=== PATIENT | male | born 1990 ===

== ENCOUNTER 2017-07-15 01:40 | Emergency (ER) | payer SELFPAY ==
[2017-07-15 02:00] VITALS: BP 141/88
[2017-07-15 07:39] LABS: Bilirubin,Urine NEG (Negative); Blood,Urine NEG (Negative); Color,Urine Yellow (Yellow); Protein,Urine <15 mg/dL mg/dL (Negative); Urobilinogen,Urine < 2.0 mg/dL (<2.0); WBC,Urine < 1.0 /HPF (0.0-6.0)
--- NOTE | 2017-07-15 07:46 | Emergency Department Report ---
Chief Complaint: Urogenital-Male Stated Complaint: BURN WHEN URINATING,ITCHING Time Seen by Provider: 07/15/17 07:37 - HPI History of Present Illness: This is a 27-year-old male nontoxic, well nourished in appearance, no acute signs of distress presents to the ED for a STD checkup. They stated that he had sexual intercourse by his girlfriend and protective and both now have dysuria. Patient denies any penile lesions or ulcers. Patient denies any other urinary symptoms. Patient denies any back pain, chest pain, shortness of breath, fever, chills, nausea, vomiting, headache or stiff neck. Patient denies penile discharge. Denies in particular pain or swelling. Patient denies any allergies or significant past medical history. - Exam Vital Signs: Vital Signs 07/15/17 07/15/17 01:52 02:54 Temperature 98.5 F 98.5 F Pulse Rate 65 66 Respiratory 18 17 Rate Blood Pressure 141/88 141/88 O2 Sat by Pulse 100 100 Oximetry Physical Exam: GENERAL: The patient is a well-developed, well-nourished in no apparent distress. Patient is alert and acting appropriately for age. Alert and oriented 3, no apparent distress, normal gait, atraumatic. LUNGS: Clear to auscultation. Non labor breathing. No intercostal retractions. Symmetrical with respiration, no wheezing, no rales, or crackles. HEART: Regular rate and rhythm without murmur, rubs or gallops. No reproducible. S1, S2 present, regular rate and rhythm without murmur, no rubs, no gallops. ABDOMEN: Soft, nontender, and nondistended. Positive bowel sounds. No hepatosplenomegaly was noted. No guarding or rebound tenderness, negative epigastric bruit. Negative psoas sign, negative ott sign, negative McBurneys sign MSE screening note: Focused history and physical exam performed. Due to findings the following was ordered: ED Medical Decision Making - Medical Decision Making This is a 27-year-old male that presents with nonmedical emergency. Patient is stable and was examined by me. Patient is asymptomatic and denies any symptoms. Patient states he just wants to be tested for STD. Janitor Custodian has approached patient for a co-pay but patient refused. I will refer the patient [facility]. At time of discharge, the patient does not seem toxic or ill in appearance. No acute signs of distress noted. Patient agrees to discharge treatment plan of care. No further questions noted by the patient. ED Disposition for MSE Clinical Impression: Possible exposure to STD Disposition: MED SCREENING EXAM-LEFT Condition: Stable Referrals: PRIMARY CARE, [Primary Care Provider] - 3-5 Days Forms: Work/School Release Form(ED)
== END 2017-07-15 08:05 | disposition left against medical advice (07) ==
LOC: ED 01:40
DX: R30.0 Dysuria (principal)
CPT/HCPCS: 81001; 99283